=== PATIENT | female | born 1985 | race African-American/Black ===

== ENCOUNTER 2016-05-24 09:54 | Emergency (ER) | payer BC ==
[~2016-05-24] VITALS: Ht 149.9 cm; Wt 59.9 kg
[2016-05-24] MEDS ORDERED: ONDANSETRON ODT 4 MG TAB.RAPDIS PO ONE (11:00)
[2016-05-24] MEDS ORDERED: ONDA4TAB7 PO (11:02)
--- NOTE | 2016-05-24 11:02 | PHYS DOC ---
Past Medical History Past Medical History: No Pertinent History Past Surgical History: No Surgical History Alcohol Use: Occasionally Drug Use: None Adult General Chief Complaint Chief Complaint: NAUSEA/VOMITING/DIARRHA HPI HPI 31-year-old female who states she's had significant nausea and vomiting for the last several days. She denies any abdominal pain. She denies any diarrhea. She denies any blood in her vomit. She states her child had similar type symptoms several days ago that resolved. She denies any fever or chills. She denies any dysuria or hematuria or vaginal bleeding. She denies any drug or alcohol use. Review of Systems Review of Systems Constitutional: Denies fever or chills [] Eyes: Denies change in visual acuity, redness, or eye pain [] HENT: Denies nasal congestion or sore throat [] Respiratory: Denies cough or shortness of breath [] Cardiovascular: No additional information not addressed in HPI [] GI: Denies abdominal pain, has nausea, has vomiting, denies bloody stools or diarrhea [] : Denies dysuria or hematuria [] Musculoskeletal: Denies back pain or joint pain [] Integument: Denies rash or skin lesions [] Neurologic: Denies headache, focal weakness or sensory changes [] Endocrine: Denies polyuria or polydipsia [] Current Medications Current Medications Current Medications Medications (Trade) Dose Ordered Sig/[facility] Start Time Stop Time Status Last Admin Dose Admin Ondansetron HCl (Zofran Odt) 4 mg 1X ONCE 05/24/16 11:00 05/24/16 11:01 DC 05/24/16 11:08 4 MG Allergies Allergies Allergies Coded Allergies Type Severity Reaction Last Updated Verified No Known Drug Allergies 05/24/16 No Physical Exam Physical Exam Constitutional: Well developed, well nourished, no acute distress, non-toxic appearance. [] HENT: Normocephalic, atraumatic, bilateral external ears normal, oropharynx moist, no oral exudates, nose normal. [] Eyes: PERRLA, EOMI, conjunctiva normal, no discharge. [] Neck: Normal range of motion, no tenderness, supple, no stridor. [] Cardiovascular:Heart rate regular rhythm, no murmur [] Lungs & Thorax: Bilateral breath sounds clear to auscultation [] Abdomen: Bowel sounds normal, soft, no tenderness, no masses, no pulsatile masses. [] Skin: Warm, dry, no erythema, no rash. [] Back: No tenderness, no CVA tenderness. [] Extremities: No tenderness, no cyanosis, no clubbing, ROM intact, no edema. [] Neurologic: Alert and oriented X 3, normal motor function, normal sensory function, no focal deficits noted. [] Psychologic: Affect normal, judgement normal, mood normal. [] Current Patient Data Vital Signs Vital Signs Date Time Temp Pulse Resp B/P Pulse Ox O2 Delivery O2 Flow Rate FiO2 05/24/16 11:15 85 18 132/62 99 Room Air 05/24/16 10:08 98.1 98.1 Lab Values Laboratory Tests Test 05/24/16 11:06 POC Urine HCG, Qualitative Hcg negative (Negative) EKG EKG [] Radiology/Procedures Radiology/Procedures [] Course & Med Decision Making Course & Med Decision Making Pertinent Labs and Imaging studies reviewed. (See chart for details) This otherwise healthy 31-year-old female has a benign and exam. Patient was given Zofran and successfully oral fluid challenged. Vital signs remained normal in the department. I counseled her at length to remain well-hydrated at home with Zofran as needed and follow closely with her primary care doctor in the next several days for symptom resolution. Dragon Disclaimer Dragon Disclaimer This electronic medical record was generated, in whole or in part, using a voice recognition dictation system. Departure Departure Impression: Primary Impression: Nausea & vomiting Additional Impression: Diarrhea Disposition: 01 HOME, SELF-CARE Admitting Physician: Other Condition: STABLE Referrals: NO PCP (PCP) Patient Instructions: Nausea, Adult, [id number] Additional Instructions: Please take your medications as prescribed. Continue to drink plenty of fluids and get rest. Use a clear liquid diet. Return to the ER if you develop any worsening of your symptoms. Scripts Ondansetron Hcl (Zofran)4 Mg Tablet4 Mg PO BID PRN NAUSEA/VOMITING #10 TAB Prov:FAYE HARRIS DO 05/24/16 Problem Qualifiers FAYE HARRIS DO May 24, 2016 11:02
[2016-05-24 11:15] VITALS: BP 132/62
== END 2016-05-24 11:20 | disposition home or self-care (01) ==
LOC: ER 09:54
DX: R11.2 Nausea with vomiting, unspecified (principal); R19.7 Diarrhea, unspecified
CPT/HCPCS: 81025; 99283; Q0162

== ENCOUNTER 2017-09-13 16:34 | Emergency (ER) | payer OTHER, BC ==
[2017-09-13 18:18] LABS: URINE HCG POC HCG NEGATIVE (Negative)
[2017-09-13] MEDS: AZITHROMYCIN 250 MG TABLET. PO (19:19)
[2017-09-13] MEDS: cefTRIAXone IM 250 MG VIAL IM (19:20)
[2017-09-15 15:23] LABS: CHLAMYDIA PROBE Negative (Negative); GC PROBE Negative (Negative)
== END 2017-09-13 20:01 | disposition home or self-care (01) ==
LOC: ER 20:01
DX: N76.0 Acute vaginitis (principal); B96.89 Other specified bacterial agents as the cause of diseases classified elsewhere
CPT/HCPCS: 81025; 87491; 87591; 96372; 99284; J0696; Q0111; Q0144